=== PATIENT | male | born 1990 | race Two or more races ===

== ENCOUNTER 2017-11-13 03:53 | Emergency (ER) | payer OTHER ==
[~2017-11-13] VITALS: Ht 172.7 cm; Wt 102.1 kg
[2017-11-13 04:18] VITALS: BP 142/98
[2017-11-13] MEDS ORDERED: ACETAMINOPHEN 500 MG TAB PO ONE (04:45)
== END 2017-11-13 06:26 | disposition left against medical advice (07) ==
LOC: EDBD 03:53 → ER 03:53
DX: R40.4 Transient alteration of awareness (principal); Z53.21 Procedure and treatment not carried out due to patient leaving prior to being seen by health care provider
CPT/HCPCS: 70450